=== PATIENT | male | born 1985 | race Hispanic/Latino ===

== ENCOUNTER 2016-12-13 22:54 | Emergency (ER) | payer OTHER ==
[2016-12-14 04:44] VITALS: BP 126/79
[2016-12-14 08:23] LABS: Urine Drugs of Abuse Note Disclamer
[2016-12-14 09:10] LABS: Bilirubin,Urine NEG (Negative); Blood,Urine NEG (Negative); Ketones,Urine NEG (Negative); Leukocyte Esterase,Urine NEG (Negative); Mucus,Urine FEW /HPF; Nitrite,Urine NEG (Negative); Protein,Urine <15 mg/dL mg/dL (Negative); Urobilinogen,Urine < 2.0 mg/dL (<2.0)
--- NOTE | 2016-12-14 11:55 | Emergency Department Report ---
ED General Adult HPI - General Chief complaint: Psych Stated complaint: DROWSY Time Seen by Provider: 12/14/16 11:46 Source: patient, RN notes reviewed Mode of arrival: Ambulatory Limitations: No Limitations - History of Present Illness Initial comments: This is a 31-year-old male. He is previously unknown to me. Has a history of narcotic abuse, and seizure disorder. He presents to the ER for evaluation of resolved drowsiness. The patient reports that he took a Percocet last night, was sent in for evaluation. He ingested the Percocet recreationally. He is not homicidal. He is not suicidal. He does not have access to guns or firearms. He has no acute complaints at this time. -: Last night Severity scale (0 -10): 0 Consistency: now resolved Improves with: none Worsens with: none Associated Symptoms: denies other symptoms - Related Data Home Medications Medication Instructions Recorded Confirmed Last Taken Divalproex ER [Depakote ER] 750 mg PO QDAY 11/05/13 11/05/13 11/04/13 Gabapentin 300 mg PO TID PRN 11/05/13 11/05/13 Unknown HYDROcodone/APAP 10-325 [[place] 1 each PO Q6HR PRN 11/05/13 11/05/13 11/01/13 10/325] Allergies Allergy/AdvReac Type Severity Reaction Status Date / Time codeine Allergy Anaphylaxis Verified 11/05/13 11:28 ED Review of Systems ROS: Stated complaint: DROWSY Other details as noted in HPI Constitutional: denies: fever Eyes: denies: vision change ENT: denies: epistaxis Respiratory: denies: cough Cardiovascular: denies: chest pain Gastrointestinal: denies: nausea Genitourinary: denies: dysuria Musculoskeletal: denies: back pain Skin: denies: lesions Neurological: denies: headache, weakness, confusion Psychiatric: denies: homicidal thoughts, suicidal thoughts ED Past Medical Hx - Past Medical History Previous Medical History?: Yes Hx Seizures: Yes (epilepsy) Additional medical history: 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 - Surgical History Past Surgical History?: Yes Additional Surgical History: tonsillectomy - Social History Smoking Status: Current Every Day Smoker Substance Use Type: Prescribed, Other - Medications Home Medications: Home Medications Medication Instructions Recorded Confirmed Last Taken Type Divalproex ER [Depakote ER] 750 mg PO QDAY 11/05/13 11/05/13 11/04/13 History Gabapentin 300 mg PO TID PRN 11/05/13 11/05/13 Unknown History HYDROcodone/APAP 10-325 [[place] 1 each PO Q6HR PRN 11/05/13 11/05/13 11/01/13 History 10/325] ED Physical Exam - General Limitations: No Limitations General appearance: alert, in no apparent distress - Head Head exam: Present: atraumatic, normocephalic - Eye Eye exam: Present: normal appearance, EOMI. Absent: nystagmus - ENT ENT exam: Present: normal exam, normal orophraynx, mucous membranes moist, normal external ear exam - Neck Neck exam: Present: normal inspection, full ROM. Absent: tenderness, meningismus - Respiratory Respiratory exam: Present: normal lung sounds bilaterally. Absent: respiratory distress, wheezes, rales, rhonchi, stridor, decreased breath sounds - Cardiovascular Cardiovascular Exam: Present: regular rate, normal rhythm, normal heart sounds. Absent: bradycardia, tachycardia, irregular rhythm, systolic murmur, diastolic murmur, rubs, gallop - GI/Abdominal GI/Abdominal exam: Present: soft, normal bowel sounds. Absent: distended, tenderness, guarding, rebound, rigid, pulsatile mass - Rectal Rectal exam: Present: deferred - Extremities Exam Extremities exam: Present: normal inspection, full ROM, normal capillary refill. Absent: tenderness, pedal edema, joint swelling, calf tenderness - Back Exam Back exam: Present: normal inspection - Neurological Exam Neurological exam: Present: alert, oriented X3, normal gait, other (Extraocular movements intact. Tongue midline. No facial droop. Facial sensation intact to light touch in the V1, V2, V3 distribution bilaterally. 5 and 5 strength in 4 extremities.. Sensation is intact to light touch in 4 extremities.). Absent : motor sensory deficit - Psychiatric Psychiatric exam: Present: normal affect, normal mood - Skin Skin exam: Present: warm, dry, intact, normal color. Absent: rash ED Course Vital Signs 12/13/16 12/14/16 12/14/16 23:00 04:42 12:30 Temperature 98.3 F 98.0 F Pulse Rate 93 H 99 H Respiratory 16 18 20 Rate Blood Pressure 126/79 Blood Pressure 123/85 [Right] O2 Sat by Pulse 97 100 Oximetry - Reevaluation(s) Reevaluation #1: 12/14/16 13:21 Differential diagnosis: Resolved somnolence secondary to Percocet ingestion, general medical evaluation Assessment and plan: 31-year-old male who ingested a Percocet recreationally more than 12 hours prior to my evaluation, currently with no symptoms medically. He is alert and oriented 3, has a GCS of 15, with an NIH score of 0 , is not homicidal or suicidal, he is pleasant, calm and cooperative, no indication of blunt trauma, his physical exam is unremarkable, and he walks with a steady gait. He has no objective indication for 1013 at this time, his laboratory studies are unremarkable, he does not require initiation of specific antidote, he is instructed to not consume opioids are narcotics. Of note, patient didn't want to go to a long-term facility for detox/further evaluation and outpatient management, and the crisis team is currently working with him on this. At this point in time, he does not require admission for medical or for psychiatric reasons, and is suitable for discharge. ED Medical Decision Making - Lab Data Result diagrams: 12/14/16 12:10 12/14/16 12:10 Vital Signs 12/13/16 12/14/16 23:00 04:42 Temperature 98.3 F 98.0 F Pulse Rate 93 H 99 H Respiratory 16 18 Rate Blood Pressure 126/79 Blood Pressure 123/85 [Right] O2 Sat by Pulse 97 100 Oximetry Lab Results 12/14/16 12/14/16 12/14/16 Range/Units 07:27 07:27 12:10 WBC (4.5-11.0) K/mm3 RBC (3.65-5.03) M/mm3 Hgb (11.8-15.2) gm/dl Hct (35.5-45.6) % MCV (84-94) fl MCH (28-32) pg MCHC (32-34) % RDW (13.2-15.2) % Plt Count (140-440) K/mm3 Lymph % (Auto) (13.4-35.0) % Rhea % (Auto) (0.0-7.3) % Eos % (Auto) (0.0-4.3) % Baso % (Auto) (0.0-1.8) % Lymph # (1.2-5.4) K/mm3 Rhea # (0.0-0.8) K/mm3 Eos # (0.0-0.4) K/mm3 Baso # (0.0-0.1) K/mm3 Seg Neutrophils % (40.0-70.0) % Seg Neutrophils # (1.8-7.7) K/mm3 Sodium 141 (137-145) mmol/L Potassium 3.9 (3.6-5.0) mmol/L Chloride 100.7 (98-107) mmol/L Carbon Dioxide 28 (22-30) mmol/L Anion Gap 16 mmol/L BUN 13 (9-20) mg/dL Creatinine 0.8 (0.8-1.5) mg/dL Estimated GFR > 60 ml/min BUN/Creatinine Ratio 16.25 % Glucose 91 (75-100) mg/dL Calcium 8.8 (8.4-10.2) mg/dL Urine Color Yellow (Yellow) Urine Turbidity Clear (Clear) Urine pH 5.0 (5.0-7.0) Ur Specific [place] 1.023 (1.003-1.030) Urine Protein <15 mg/dl (Negative) mg/dL Urine Glucose (UA) Neg (Negative) mg/dL Urine Ketones Neg (Negative) mg/dL Urine Blood Neg (Negative) Urine Nitrite Neg (Negative) Urine Bilirubin Neg (Negative) Urine Urobilinogen < 2.0 (<2.0) mg/dL Ur Leukocyte Esterase Neg (Negative) Urine WBC (Auto) 6.0 (0.0-6.0) /HPF Urine RBC (Auto) 2.0 (0.0-6.0) /HPF U Epithel Cells (Auto) < 1.0 (0-13.0) /HPF Urine Mucus Few /HPF Salicylates (2.8-20.0) mg/dL Urine Opiates Screen Presumptive positive Urine Methadone Screen Presumptive negative Acetaminophen (10.0-30.0) ug/mL Ur Barbiturates Screen Presumptive negative Valproic Acid (50-100) ug/mL Ur Phencyclidine Scrn Presumptive negative Ur Amphetamines Screen Presumptive negative U Benzodiazepines Scrn Presumptive negative Urine Cocaine Screen Presumptive negative U Marijuana (THC) Screen Presumptive negative Drugs of Abuse Note Disclamer Plasma/Serum Alcohol (0-0.07) gm% 04/01/17 04/01/17 04/01/17 Range/Units 12:10 12:10 12:10 WBC 10.4 (4.5-11.0) K/mm3 RBC 4.93 (3.65-5.03) M/mm3 Hgb 14.0 (11.8-15.2) gm/dl Hct 41.3 (35.5-45.6) % MCV 84 (84-94) fl MCH 28 (28-32) pg MCHC 34 (32-34) % RDW 13.7 (13.2-15.2) % Plt Count 255 (140-440) K/mm3 Lymph % (Auto) 22.6 (13.4-35.0) % Rhea % (Auto) 9.0 H (0.0-7.3) % Eos % (Auto) 1.1 (0.0-4.3) % Baso % (Auto) 0.4 (0.0-1.8) % Lymph # 2.4 (1.2-5.4) K/mm3 Rhea # 0.9 H (0.0-0.8) K/mm3 Eos # 0.1 (0.0-0.4) K/mm3 Baso # 0.0 (0.0-0.1) K/mm3 Seg Neutrophils % 66.9 (40.0-70.0) % Seg Neutrophils # 7.0 (1.8-7.7) K/mm3 Sodium (137-145) mmol/L Potassium (3.6-5.0) mmol/L Chloride (98-107) mmol/L Carbon Dioxide (22-30) mmol/L Anion Gap mmol/L BUN (9-20) mg/dL Creatinine (0.8-1.5) mg/dL Estimated GFR ml/min BUN/Creatinine Ratio % Glucose (75-100) mg/dL Calcium (8.4-10.2) mg/dL Urine Color (Yellow) Urine Turbidity (Clear) Urine pH (5.0-7.0) Ur Specific [place] (1.003-1.030) Urine Protein (Negative) mg/dL Urine Glucose (UA) (Negative) mg/dL Urine Ketones (Negative) mg/dL Urine Blood (Negative) Urine Nitrite (Negative) Urine Bilirubin (Negative) Urine Urobilinogen (<2.0) mg/dL Ur Leukocyte Esterase (Negative) Urine WBC (Auto) (0.0-6.0) /HPF Urine RBC (Auto) (0.0-6.0) /HPF U Epithel Cells (Auto) (0-13.0) /HPF Urine Mucus /HPF Salicylates < 0.3 L (2.8-20.0) mg/dL Urine Opiates Screen Urine Methadone Screen Acetaminophen (10.0-30.0) ug/mL Ur Barbiturates Screen Valproic Acid 14.7 L (50-100) ug/mL Ur Phencyclidine Scrn Ur Amphetamines Screen U Benzodiazepines Scrn Urine Cocaine Screen U Marijuana (THC) Screen Drugs of Abuse Note Plasma/Serum Alcohol < 0.01 (0-0.07) gm% 12/14/16 Range/Units 12:10 WBC (4.5-11.0) K/mm3 RBC (3.65-5.03) M/mm3 Hgb (11.8-15.2) gm/dl Hct (35.5-45.6) % MCV (84-94) fl MCH (28-32) pg MCHC (32-34) % RDW (13.2-15.2) % Plt Count (140-440) K/mm3 Lymph % (Auto) (13.4-35.0) % Rhea % (Auto) (0.0-7.3) % Eos % (Auto) (0.0-4.3) % Baso % (Auto) (0.0-1.8) % Lymph # (1.2-5.4) K/mm3 Rhea # (0.0-0.8) K/mm3 Eos # (0.0-0.4) K/mm3 Baso # (0.0-0.1) K/mm3 Seg Neutrophils % (40.0-70.0) % Seg Neutrophils # (1.8-7.7) K/mm3 Sodium (137-145) mmol/L Potassium (3.6-5.0) mmol/L Chloride (98-107) mmol/L Carbon Dioxide (22-30) mmol/L Anion Gap mmol/L BUN (9-20) mg/dL Creatinine (0.8-1.5) mg/dL Estimated GFR ml/min BUN/Creatinine Ratio % Glucose (75-100) mg/dL Calcium (8.4-10.2) mg/dL Urine Color (Yellow) Urine Turbidity (Clear) Urine pH (5.0-7.0) Ur Specific [place] (1.003-1.030) Urine Protein (Negative) mg/dL Urine Glucose (UA) (Negative) mg/dL Urine Ketones (Negative) mg/dL Urine Blood (Negative) Urine Nitrite (Negative) Urine Bilirubin (Negative) Urine Urobilinogen (<2.0) mg/dL Ur Leukocyte Esterase (Negative) Urine WBC (Auto) (0.0-6.0) /HPF Urine RBC (Auto) (0.0-6.0) /HPF U Epithel Cells (Auto) (0-13.0) /HPF Urine Mucus /HPF Salicylates (2.8-20.0) mg/dL Urine Opiates Screen Urine Methadone Screen Acetaminophen < 15.0 (10.0-30.0) ug/mL Ur Barbiturates Screen Valproic Acid (50-100) ug/mL Ur Phencyclidine Scrn Ur Amphetamines Screen U Benzodiazepines Scrn Urine Cocaine Screen U Marijuana (THC) Screen Drugs of Abuse Note Plasma/Serum Alcohol (0-0.07) gm% Critical care attestation.: If time is entered above; I have spent that time in minutes in the direct care of this critically ill patient, excluding procedure time. ED Disposition Clinical Impression: History of narcotic addiction Disposition: DISCHARGED TO HOME OR SELFCARE Is pt being admited?: No Does the pt Need Aspirin: No Condition: Good Instructions: Narcotic Abuse (ED) Additional Instructions: Continue current outpatient prescription medications. Follow up with the primary care doctor within the next week. Return to the ER right away with new , worsening or different symptoms. Please avoid consumption of narcotics and opioids, they are dangerous and bad for your health Referrals: ART OLIVEIRA MD [Primary Care Provider] - 3-5 Days HELEN MIDDLETON MD [Staff Physician] - 3-5 Days
[2016-12-14 12:42] LABS: Basophils % (Auto) 0.4 % (0.0-1.8); Eosinophils % (Auto) 1.1 % (0.0-4.3); Hematocrit 41.3 % (35.5-45.6); Mean Corpuscular HGB Conc 34 % (32-34); Mean Corpuscular Hemoglobin 28 pg (28-32); Mean Corpuscular Volume 84 fl (84-94); Platelet Count 255 K/mm3 (140-440); Red Blood Count 4.93 M/mm3 (3.65-5.03); Red Cell Distribution Width 13.7 % (13.2-15.2); White Blood Count 10.4 K/mm3 (4.5-11.0)
[2016-12-14 12:52] LABS: Anion Gap 16 mmol/L; BUN/Creatinine Ratio 16.25; Blood Urea Nitrogen 13 mg/dL (9-20); Calcium 8.8 mg/dL (8.4-10.2); Carbon Dioxide 28 mmol/L (22-30); Chloride 100.7 mmol/L (98-107); Glucose 91 mg/dL (75-100); Potassium 3.9 mmol/L (3.6-5.0); Sodium 141 mmol/L (137-145)
[2016-12-14 13:01] LABS: Valproate 14.7 ug/mL (50-100)
[2016-12-14 13:02] LABS: Salicylate < 0.3 mg/dL (2.8-20.0)
--- NOTE | 2016-12-14 14:17 | Consultation ---
History of Present Illness - Reason for Consult Consult date: 12/14/16 Reason for consult: psychiatry - Chief Complaint Chief complaint: "I don't know" - History of Present Psychiatric Illness Jt Jeffers is a 31-year-old male who is at [facility] and was sent to the emergency department for drowsiness. He reports being treated for opioid use disorder. He denies testing positive for opiates while in the program. Although, his drug screen in the emergency department is positive. Primary complaint is drowsiness. He believes he had a seizure last night. He appears to selectively answer questions. He is alert. He reports no medication concerns. Medications and Allergies Allergies Allergy/AdvReac Type Severity Reaction Status Date / Time codeine Allergy Anaphylaxis Verified 11/05/13 11:28 Home Medications Medication Instructions Recorded Confirmed Last Taken Type Divalproex ER [Depakote ER] 750 mg PO QDAY 11/05/13 11/05/13 11/04/13 History Gabapentin 300 mg PO TID PRN 11/05/13 11/05/13 Unknown History HYDROcodone/APAP 10-325 [[place] 1 each PO Q6HR PRN 11/05/13 11/05/13 11/01/13 History 10/325] Past psychiatric history - Past Medical History Past Medical History: seizures Past Surgical History: No surgical history - past Psychiatric treatment and history Psych: Addictions psychiatric treatment history: History currently in the partial hospitalization program - Social History Social history: prescription drug abuse Mental Status Exam - Vital signs Last Vital Signs Temp 98.0 F 12/14/16 04:42 Pulse 99 H 12/14/16 04:42 Resp 18 12/14/16 04:42 BP 126/79 12/14/16 04:42 Pulse Ox 100 12/14/16 04:42 - Exam Narrative exam: No SI and no HI Orientation: time, place, person Mood: appropriate Thought Process: Intact Perceptions: none Speech: normal rate and pattern Concentration: focused Motor activity: normal Level of consciousness: alert Memory: Intact Sleep Symptoms: None Interaction: cooperative Results Result Diagrams: 12/14/16 12:10 12/14/16 12:10 Abnormal lab results 12/14/16 12/14/16 Range/Units 12:10 12:10 Carbon % (Auto) 9.0 H (0.0-7.3) % Carbon # 0.9 H (0.0-0.8) K/mm3 Salicylates < 0.3 L (2.8-20.0) mg/dL Valproic Acid 14.7 L (50-100) ug/mL All other labs normal. Assessment and Plan Assessment and plan: Impression: Patient is currently in a program for substance abuse. He tested positive for opiates in the emergency department. It is unclear if this is the cause of his drowsiness. He believes he may have had a seizure. Although he reports compliance with his seizure medication. Recommendation: Drowsiness appears to resolved. Return to the partial hospitalization program Advised to abstain from opiates and any other mood altering substances - Psychiatric problem (1) Opioid use disorder, moderate, dependence Current Visit: Yes Status: Acute
== END 2016-12-14 13:45 | disposition home or self-care (01) ==
LOC: ED 22:54
DX: R40.0 Somnolence (principal); G43.909 Migraine, unspecified, not intractable, without status migrainosus; F17.200 Nicotine dependence, unspecified, uncomplicated; Z88.5 Allergy status to narcotic agent
CPT/HCPCS: 36415; 80048; 80164; 80307; 81001; 85025; 99283; G0480; 80320